=== PATIENT | female | born 1970 | race Caucasian/White ===

== ENCOUNTER 2018-05-17 01:42 | Observation (INO) | payer OTHER ==
[2018-05-17] MEDS ORDERED: NACL 0.9% 3 ML SYG IV (03:30)
[2018-05-17] MEDS ORDERED: ACETAMINOPHEN 325 MG TAB PO (03:30)
[2018-05-17] MEDS ORDERED: ONDANSETRON 4 MG INJ IV (03:30)
[2018-05-17] MEDS ORDERED: NITROGLYCERIN (SL) 0.4 MG TAB SL (03:30)
[2018-05-17 05:49] LABS: ADD MAN DIFF? NO
[2018-05-17 05:53] LABS: BASOPHIL # 0.1 10^3/ul (0.0-0.1); BASOPHILS % 0.6 % (0.0-2.0); EOSINOPHILS # 0.1 10^3/ul (0.0-0.5); EOSINOPHILS % 1.1 % (0.0-7.0); HEMATOCRIT 38.9 % (37.0-47.0); HEMOGLOBIN 12.8 g/dl (12.0-16.0); LYMPHOCYTES # 2.3 10^3/ul (0.8-2.9); LYMPHOCYTES % 22.7 % (15.0-51.0); MEAN CORPUSCULAR HEMOGLOBIN 30.5 pg (29.0-33.0); MEAN CORPUSCULAR HGB CONC 32.9 g/dl (32.0-37.0); MEAN CORPUSCULAR VOLUME 92.6 fl (82.0-101.0); MONOCYTE # 0.5 10^3/ul (0.3-0.9); MONOCYTES % 5.4 % (0.0-11.0); NEUTROPHILS % 69.5 % (39.0-77.0); PLATELET COUNT 192 10^3/UL (140-415); RED CELL DISTRIBUTION WIDTH 13.1 % (11.5-14.5)
[2018-05-17 06:32] LABS: CREATINE KINASE 31 IU/L (23-200)
[2018-05-17 06:44] LABS: CK INDEX 0.7; CK-MB < 0.22 ng/ml (0.0-2.4); TROPONIN-I < 0.012 ng/ml (0.000-0.120)
[2018-05-17 06:50] LABS: ALANINE AMINOTRANSFERASE 192 IU/L (13-69); ALBUMIN 4.3 g/dl (3.3-4.9); ALBUMIN/GLOBULIN RATIO 1.26; ALKALINE PHOSPHATASE 97 IU/L (42-121); ANION GAP 13 (5-13); ASPARTATE AMINO TRANSFERASE 115 IU/L (15-46); BILIRUBIN,INDIRECT 1.4 mg/dl (0-1.1); BILIRUBIN,TOTAL 1.4 mg/dl (0.2-1.3); BLOOD UREA NITROGEN 15 mg/dl (7-20); CARBON DIOXIDE 25 mmol/L (21-31); CHLORIDE 104 mmol/L (97-110); CHOL/HDL RATIO 5.1 RATIO; CHOLESTEROL 252 mg/dl (100-200); CREATININE 0.57 mg/dl (0.44-1.00); Estimated GFR > 60 mL/min (>60); GLUCOSE 140 mg/dl (70-220); HDL CHOLESTEROL 49 mg/dl (34-88); LDL CHOLESTEROL,CALCULATED 166 mg/dl; POTASSIUM 4.2 mmol/L (3.5-5.1); SODIUM 142 mmol/L (135-144); TOTAL PROTEIN 7.7 g/dl (6.1-8.1); TRIGLYCERIDES 184 mg/dl (0-149)
[2018-05-17 07:11] LABS: HEMOGLOBIN A1C 7.1 % (0-5.9)
[2018-05-17] MEDS ORDERED: DIPHENHYDRAMINE 25 MG CAP PO (08:00)
[2018-05-17] MEDS: ASPIRIN (EC) 81 MG TAB PO (08:42)
[2018-05-17] MEDS: METOPROLOL 50 MG TAB PO ×2 (08:43→21:00)
[2018-05-17] MEDS: ENOXAPARIN 40 MG/0.4 ML SYG SC (08:46)
[2018-05-17] MEDS: SUMATRIPTAN 25 MG TAB PO (11:18)
[2018-05-17 11:32] LABS: CREATINE KINASE 36 IU/L (23-200)
[2018-05-17 11:45] LABS: CK INDEX 0.6; CK-MB < 0.22 ng/ml (0.0-2.4); TROPONIN-I < 0.012 ng/ml (0.000-0.120)
[2018-05-17] MEDS ORDERED: BISACODYL 10 MG SUPP PR (12:30)
[2018-05-17] MEDS ORDERED: BISACODYL (EC) 5 MG TAB PO (12:30)
[2018-05-17] MEDS ORDERED: KETOROLAC 15 MG INJ IV (12:30)
[2018-05-17] MEDS: MAGNESIUM HYDROXIDE 30ML CUP PO ×2 (15:31→20:03)
[2018-05-18 06:02] LABS: ADD MAN DIFF? NO; HAAIG REFLEX REFLEX FILED
[2018-05-18 06:03] LABS: BASOPHIL # 0.1 10^3/ul (0.0-0.1); BASOPHILS % 0.8 % (0.0-2.0); EOSINOPHILS # 0.2 10^3/ul (0.0-0.5); EOSINOPHILS % 3.4 % (0.0-7.0); HEMATOCRIT 37.4 % (37.0-47.0); HEMOGLOBIN 12.3 g/dl (12.0-16.0); LYMPHOCYTES # 2.2 10^3/ul (0.8-2.9); LYMPHOCYTES % 33.5 % (15.0-51.0); MEAN CORPUSCULAR HEMOGLOBIN 30.1 pg (29.0-33.0); MEAN CORPUSCULAR HGB CONC 32.9 g/dl (32.0-37.0); MEAN CORPUSCULAR VOLUME 91.4 fl (82.0-101.0); MEAN PLATELET VOLUME 8.8 fl (7.4-10.4); MONOCYTE # 0.5 10^3/ul (0.3-0.9); MONOCYTES % 7.3 % (0.0-11.0); NEUTROPHIL # 3.5 10^3/ul (1.6-7.5); NEUTROPHILS % 54.2 % (39.0-77.0); PLATELET COUNT 188 10^3/UL (140-415); RED BLOOD COUNT 4.09 10^6/ul (4.20-5.40)
[2018-05-18 06:03] LABS: WHITE BLOOD COUNT 6.4 10^3/ul (4.8-10.8)
[2018-05-18 06:29] LABS: MAGNESIUM 2.3 mg/dl (1.7-2.5)
[2018-05-18 06:29] LABS: PHOSPHORUS 3.3 mg/dl (2.5-4.9)
[2018-05-18 06:41] LABS: ALANINE AMINOTRANSFERASE 193 IU/L (13-69); ALBUMIN 4.1 g/dl (3.3-4.9); ALBUMIN/GLOBULIN RATIO 1.28; ALKALINE PHOSPHATASE 92 IU/L (42-121); ANION GAP 11 (5-13); ASPARTATE AMINO TRANSFERASE 100 IU/L (15-46); BILIRUBIN,INDIRECT 1.3 mg/dl (0-1.1); BILIRUBIN,TOTAL 1.3 mg/dl (0.2-1.3); BLOOD UREA NITROGEN 16 mg/dl (7-20); CALCIUM 8.8 mg/dl (8.4-10.2); CARBON DIOXIDE 25 mmol/L (21-31); CHLORIDE 104 mmol/L (97-110); Estimated GFR > 60 mL/min (>60); GLUCOSE 128 mg/dl (70-220); SODIUM 140 mmol/L (135-144); TOTAL PROTEIN 7.3 g/dl (6.1-8.1)
[2018-05-18 06:47] LABS: LIPASE 47 U/L (23-300)
[2018-05-18 06:47] LABS: LACTATE DEHYDROGENASE 594 IU/L (313-618)
[2018-05-18 07:08] LABS: HEPATITIS B SURFACE ANTIGEN NEGATIVE (NEGATIVE)
[2018-05-18 07:26] LABS: HEPATITIS B CORE ANTIBODY NEGATIVE (NEGATIVE); HEPATITIS C VIRAL ANTIBODY NEGATIVE (NEGATIVE)
[2018-05-18] MEDS: MAGNESIUM HYDROXIDE 30ML CUP PO (09:00)
[2018-05-18] MEDS: ASPIRIN (EC) 81 MG TAB PO (09:07)
[2018-05-18] MEDS: METOPROLOL 50 MG TAB PO (09:09)
[2018-05-18] MEDS: ENOXAPARIN 40 MG/0.4 ML SYG SC (09:10)
== END 2018-05-18 15:30 | disposition home or self-care (01) ==
LOC: MS3 01:42
DX: R07.89 Other chest pain (principal); M79.7 Fibromyalgia; K59.00 Constipation, unspecified; R51 Headache; R10.11 Right upper quadrant pain
CPT/HCPCS: 76705; 80053; 80061; 82550; 82553; 83036; 83615; 83690; 83735; 84100; 84443; 84484; 85014; 85018; 85025; 86704; 86709; 86803; 87340; 93005; 93306; 99217

== ENCOUNTER 2018-06-14 12:24 | Emergency (ER) | payer SELFPAY, OTHER | END 2018-06-14 15:07 | disposition left against medical advice (07) | LOC: FTE 12:24 | DX: Z53.21 Procedure and treatment not carried out due to patient leaving prior to being seen by health care provider (principal) ==